=== PATIENT | female | born 1960 | race Caucasian/White ===

== ENCOUNTER 2019-01-02 06:05 | Day surgery (SDC) | payer OTHER ==
[~2019-01-02] VITALS: Ht 162.6 cm; Wt 59.5 kg
[2019-01-02] MEDS ORDERED: VITAMINS (07:15)
[2019-01-02 07:16] VITALS: Ht 162.6 cm; Wt 59.5 kg
[2019-01-02 07:58] VITALS: BP 121/57; PULSE 65; RESP 18
[2019-01-02] MEDS ORDERED: MIDAZOLAM 1 MG/ML 2 ML INJ ONE ×2 (08:52)
[2019-01-02] MEDS ORDERED: FENTAnyl 50 MCG/ML VIAL ONE (08:52)
[2019-01-02 09:17] VITALS: BP 91/57; PULSE 60; RESP 20
== END 2019-01-02 14:09 | disposition home or self-care (01) ==
LOC: GIL 06:05
PROVIDERS: ATTEND Internal Medicine Gastroenterology
DX: Z12.11 Encounter for screening for malignant neoplasm of colon (principal); K64.1 Second degree hemorrhoids
CPT/HCPCS: 45378; J2250; J3010; Z7610